=== PATIENT | male | born 1945 | race American Indian/Alaskan Native ===

== ENCOUNTER 2021-12-26 16:35 | Emergency (ER) | payer SELFPAY ==
[2021-12-26 17:06] VITALS: BP 110/70
--- NOTE | 2021-12-26 18:30 | XRay Report ---
CHEST 2 VIEWS INDICATION: Chest Pain. COMPARISON: None. FINDINGS: Support devices: None. Heart: Within normal limits. Lungs/Pleura: Patchy opacity at the left upper lobe and right lower lobe. No significant pleural ef fusion. IMPRESSION: Bilateral pneumonia. Signer Name: Beto Washington MD Signed: 12/26/2021 6:26 PM Workstation Name: [id number]
[2021-12-26 19:21] LABS: Basophils % (Auto) 0.6 % (0.0-1.8); Eosinophils % (Auto) 0.5 % (0.0-4.3); Hematocrit 28.6 % (35.5-45.6); Hemoglobin 9.1 gm/dl (11.8-15.2); Lymphocytes # (Auto) 1.1 K/mm3 (1.2-5.4); Mean Corpuscular HGB Conc 32 % (32-34); Mean Corpuscular Volume 87 fl (84-94); Monocytes # (Auto) 1.1 K/mm3 (0.0-0.8); Platelet Count 341 K/mm3 (140-440); Red Blood Count 3.28 M/mm3 (3.65-5.03); Red Cell Distribution Width 16.5 % (13.2-15.2)
[2021-12-26 19:28] LABS: INR 1.15 (0.87-1.13); Partial Thromboplastin Time 37.7 Sec. (24.2-36.6)
[2021-12-26 19:38] LABS: Alanine Aminotransferase 13 units/L (7-56); Albumin 3.2 g/dL (3.9-5); Blood Urea Nitrogen 8 mg/dL (9-20); Calcium 8.8 mg/dL (8.4-10.2); Hemolysis Index 0
[2021-12-26 19:41] LABS: BUN/Creatinine Ratio 16
--- NOTE | 2021-12-28 13:26 | Electrocardiograph Report ---
[facility] Test Date: 2021-12-26 Test Time: 17:42:20 Pat Name: MALVIN DONAHUE Department: Room: Gender: M [employer] [place]: AF : 1945 Requested By: CL GOMEZ Order Number: [id number] Reading MD: Tyrone Araiza Measurements Intervals [place] Rate: 92 P: 40 HI: 141 QRS: 37 QRSD: 76 T: 59 QT: 359 QTc: 445 Interpretive Statements Sinus rhythm No previous ECG available for comparison Electronically Signed On 12-28-2021 13:26:25 EDT by Tyrone Araiza
== END 2021-12-27 19:02 | disposition left against medical advice (07) ==
LOC: ED 16:35
DX: R07.89 Other chest pain (principal); Z53.21 Procedure and treatment not carried out due to patient leaving prior to being seen by health care provider
CPT/HCPCS: 36415; 71046; 80053; 84484; 85025; 85610; 85730; 93005